=== PATIENT | female | born 1940 | race Caucasian/White ===

== ENCOUNTER 2018-12-15 22:46 | Inpatient (IN) ==
[2018-12-16] MEDS ORDERED: SODIUM CHLORIDE 0.9% 2,000 ML IV STA (00:16)
[2018-12-16 00:25] LABS: Basophils % 0.3 % (0.0-0.8); Eosinophils # 0.1 10*3/uL (0.0-0.87); Hematocrit 39.7 VOL% (35.7-47.0); Hemoglobin 12.5 GM/DL (12.0-16.0); Immature Granulocytes % 0.7 %; Immature Granulocytes Absolute 0.09 #; Lymphocytes # 1.2 10*3/uL (1.4-4.0); Mean Corpuscular HGB Conc 31.5 GM/DL (32-36); Mean Corpuscular Hemoglobin 27 PG (27-34); Mean Corpuscular Volume 84.8 FL (87-102); Mean Platelet Volume 10.3 FL (9.6-12.0); Monocytes % 7.2 % (1.7-12.7); Neutrophils # 10.9 10*3/uL (1.4-7.4); Neutrophils % 81.8 % (38.7-73.9); Platelet Count 390 T/CUMM (130-400); Red Blood Count 4.68 MC/CUMM (3.8-5.5); Red Cell Distribution Width 12.8 % (9.3-17.3); White Blood Count 13.4 T/CUMM (4-12)
[2018-12-16 00:36] LABS: Albumin 3.2 G/DL (3.4-5.0); Bilirubin,Total 0.5 MG/DL (0.2-1.0); Calcium 11.8 MG/DL (8.5-10.1); Potassium 3.8 MMOL/L (3.5-5.1)
[2018-12-16 01:14] LABS: Apearance,Urine Slightly Hazy (Clear); Bilirubin,Urine Negative (Negative); Blood, Urine Negative (Negative); Glucose,Urine (UA) Negative (Negative); Hyaline Casts,Urine 8 /LPF (0-3); Ketones,Urine Negative (Negative); Mucus,Urine Occasional /LPF (Occasional); Nitrite,Urine Negative (Negative); Protein,Urine Negative; RBC,Urine <1 /HPF (0-4); Squamous Epithelial Cell,Urine Occasional /HPF (0-10); Urine Color Amber (Yellow); Urine Specific Gravity 1.019 (1.001-1.035); WBC,Urine <1 /HPF (0-6)
[2018-12-16 01:47] LABS: Barbiturates Screen,Urine Negative (Negative); Benzodiazepines Screen,Urine Positive (Negative); Cannabinoid Screen,Urine Negative (Negative); Opiate Screen,Urine Negative (Negative); Phencyclidine Screen,Urine Negative (Negative)
[2018-12-16] MEDS ORDERED: ACETAMINOPHEN 325 MG TABLET PO PRN (03:18)
[2018-12-16] MEDS ORDERED: ONDANSETRON 4 MG/2 ML VIAL IV PRN (03:18)
[2018-12-16] MEDS: SODIUM CHLORIDE 0.9% 1,000 ML IV SCH ×2 (04:32→14:29)
[2018-12-16 07:18] LABS: Basophils % 0.2 % (0.0-0.8); Eosinophils # 0.1 10*3/uL (0.0-0.87); Eosinophils % 0.5 % (0.00-10.9); Hematocrit 34.9 VOL% (35.7-47.0); Immature Granulocytes % 0.7 %; Immature Granulocytes Absolute 0.08 #; Lymphocytes # 1.8 10*3/uL (1.4-4.0); Lymphocytes % 14.5 % (21.3-54.2); Mean Corpuscular HGB Conc 31.5 GM/DL (32-36); Mean Corpuscular Hemoglobin 26 PG (27-34); Mean Corpuscular Volume 83.7 FL (87-102); Mean Platelet Volume 9.8 FL (9.6-12.0); Monocytes % 8.4 % (1.7-12.7); Neutrophils # 9.3 10*3/uL (1.4-7.4); Neutrophils % 75.7 % (38.7-73.9); Platelet Count 327 T/CUMM (130-400); Red Blood Count 4.17 MC/CUMM (3.8-5.5); Red Cell Distribution Width 12.9 % (9.3-17.3); White Blood Count 12.3 T/CUMM (4-12)
[2018-12-16 07:47] LABS: Albumin 2.8 G/DL (3.4-5.0); Bilirubin,Total 0.8 MG/DL (0.2-1.0); Risk Ratio 4.88; Total Protein 6.8 G/DL (6.4-8.3); VLDL CHOLESTEROL 21.6 MG/DL
[2018-12-16] MEDS: PANTOPRAZOLE 40 MG TABLET PO SCH (08:58)
[2018-12-16] MEDS ORDERED: ENOXAPARIN 40 MG/0.4 ML SYRINGE SUBCUT SCH (09:00)
[2018-12-16] MEDS: VENLAFAXINE 75 MG TABLET PO SCH (14:06)
[2018-12-16] MEDS: AMPICILLIN INJ 500 MG in SODIUM CHLORIDE 0.9% 100 ML IV SCH (14:06)
[2018-12-16] MEDS: LIDOCAINE 5% PATCH TRANSDERM SCH (14:28)
[2018-12-16] MEDS ORDERED: ENOXAPARIN 30 MG/0.3 ML SYRINGE SUBCUT ONE (14:51)
[2018-12-16] MEDS ORDERED: ENOXAPARIN 40 MG/0.4 ML SYRINGE SUBCUT ONE (16:30)
[2018-12-16] MEDS: RIVAROXABAN 15 MG TABLET PO SCH (18:27)
[2018-12-16] MEDS: MEMANTINE 10 MG TABLET PO SCH (20:37)
[2018-12-16] MEDS: GLUCOSAMINE 500 MG TABLET PO SCH (20:37)
[2018-12-16] MEDS: clonazePAM 0.5 MG TABLET PO SCH (20:38)
[2018-12-16] MEDS ORDERED: ENOXAPARIN 80 MG/0.8 ML SYRINGE SUBCUT SCH (22:00)
[2018-12-17] MEDS: AMPICILLIN INJ 500 MG in SODIUM CHLORIDE 0.9% 100 ML IV SCH ×5 (00:29→17:19)
[2018-12-17] MEDS: SODIUM CHLORIDE 0.9% 1,000 ML IV SCH ×3 (00:35→14:19)
[2018-12-17] MEDS: LIDOCAINE 5% PATCH TRANSDERM SCH ×2 (04:30→15:59)
[2018-12-17] MEDS ORDERED: KRILL OIL PO SCH (09:00)
[2018-12-17] MEDS: RIVAROXABAN 15 MG TABLET PO SCH ×2 (10:30→17:19)
[2018-12-17] MEDS: PANTOPRAZOLE 40 MG TABLET PO SCH (10:31)
[2018-12-17] MEDS: VENLAFAXINE 75 MG TABLET PO SCH (10:31)
[2018-12-17] MEDS: GLUCOSAMINE 500 MG TABLET PO SCH ×2 (10:31→21:47)
[2018-12-17] MEDS: clonazePAM 0.5 MG TABLET PO SCH ×2 (10:31→14:00)
[2018-12-17] MEDS: MEMANTINE 10 MG TABLET PO SCH ×2 (10:31→21:47)
[2018-12-17] MEDS: CHOLECALCIFEROL 1,000 UNIT TABLET PO SCH (10:32)
[2018-12-17] MEDS: FENOFIBRATE 145 MG TABLET PO SCH (10:32)
[2018-12-18] MEDS: SODIUM CHLORIDE 0.9% 1,000 ML IV SCH (00:15)
[2018-12-18] MEDS: AMPICILLIN INJ 500 MG in SODIUM CHLORIDE 0.9% 100 ML IV SCH ×4 (00:15→18:22)
[2018-12-18] MEDS: clonazePAM 0.5 MG TABLET PO SCH ×3 (00:19→21:36)
[2018-12-18] MEDS: LIDOCAINE 5% PATCH TRANSDERM SCH ×2 (03:57→15:02)
[2018-12-18 06:31] LABS: Basophils % 0.5 % (0.0-0.8); Eosinophils # 0.2 10*3/uL (0.0-0.87); Hematocrit 31.1 VOL% (35.7-47.0); Hemoglobin 9.7 GM/DL (12.0-16.0); Immature Granulocytes % 0.5 %; Immature Granulocytes Absolute 0.04 #; Lymphocytes # 1.4 10*3/uL (1.4-4.0); Lymphocytes % 18.4 % (21.3-54.2); Mean Corpuscular HGB Conc 31.2 GM/DL (32-36); Mean Corpuscular Hemoglobin 27 PG (27-34); Mean Corpuscular Volume 86.1 FL (87-102); Mean Platelet Volume 9.6 FL (9.6-12.0); Monocytes # 0.7 10*3/uL (0.11-0.8); Monocytes % 9.7 % (1.7-12.7); Neutrophils % 67.9 % (38.7-73.9); Platelet Count 295 T/CUMM (130-400); Red Blood Count 3.61 MC/CUMM (3.8-5.5); Red Cell Distribution Width 12.8 % (9.3-17.3); White Blood Count 7.3 T/CUMM (4-12)
[2018-12-18 06:51] LABS: Calcium 9.3 MG/DL (8.5-10.1); Osmolality,Calculated 294.4 MOS/KG (273-304); Potassium 3.3 MMOL/L (3.5-5.1)
[2018-12-18] MEDS ORDERED: POTASSIUM CHLORIDE 20 MEQ TABLET PO ONE ×2 (07:08→11:09)
[2018-12-18] MEDS: RIVAROXABAN 15 MG TABLET PO SCH ×2 (07:39→16:32)
[2018-12-18] MEDS: GLUCOSAMINE 500 MG TABLET PO SCH ×2 (09:19→21:36)
[2018-12-18] MEDS: MAGNESIUM OXIDE 400 MG TABLET PO SCH ×2 (09:19→21:36)
[2018-12-18] MEDS: MEMANTINE 10 MG TABLET PO SCH ×2 (09:20→21:36)
[2018-12-18] MEDS: VENLAFAXINE 75 MG TABLET PO SCH (09:20)
[2018-12-18] MEDS: CHOLECALCIFEROL 1,000 UNIT TABLET PO SCH (09:20)
[2018-12-18] MEDS: FENOFIBRATE 145 MG TABLET PO SCH (09:20)
[2018-12-18] MEDS: POTASSIUM CHLORIDE 20 MEQ TABLET PO SCH (09:20)
[2018-12-18] MEDS: PANTOPRAZOLE 40 MG TABLET PO SCH (09:21)
[2018-12-19] MEDS: AMPICILLIN INJ 500 MG in SODIUM CHLORIDE 0.9% 100 ML IV SCH ×2 (00:15→05:50)
[2018-12-19] MEDS: LIDOCAINE 5% PATCH TRANSDERM SCH ×2 (03:14→22:15)
[2018-12-19 05:50] LABS: Basophils % 0.5 % (0.0-0.8); Eosinophils # 0.3 10*3/uL (0.0-0.87); Eosinophils % 3.9 % (0.00-10.9); Hematocrit 34.7 VOL% (35.7-47.0); Hemoglobin 10.6 GM/DL (12.0-16.0); Immature Granulocytes % 0.7 %; Immature Granulocytes Absolute 0.06 #; Lymphocytes # 1.6 10*3/uL (1.4-4.0); Lymphocytes % 19.2 % (21.3-54.2); Mean Corpuscular HGB Conc 30.5 GM/DL (32-36); Mean Corpuscular Hemoglobin 26 PG (27-34); Mean Corpuscular Volume 85.7 FL (87-102); Monocytes # 0.8 10*3/uL (0.11-0.8); Monocytes % 8.8 % (1.7-12.7); Neutrophils # 5.7 10*3/uL (1.4-7.4); Neutrophils % 66.9 % (38.7-73.9); Platelet Count 359 T/CUMM (130-400); Red Blood Count 4.05 MC/CUMM (3.8-5.5); Red Cell Distribution Width 12.8 % (9.3-17.3); White Blood Count 8.6 T/CUMM (4-12)
[2018-12-19 06:21] LABS: Calcium 9.6 MG/DL (8.5-10.1); Potassium 3.7 MMOL/L (3.5-5.1)
[2018-12-19] MEDS: clonazePAM 0.5 MG TABLET PO SCH ×2 (10:02→21:22)
[2018-12-19] MEDS: MEMANTINE 10 MG TABLET PO SCH ×2 (10:02→21:23)
[2018-12-19] MEDS: POTASSIUM CHLORIDE 20 MEQ TABLET PO SCH (10:02)
[2018-12-19] MEDS: GLUCOSAMINE 500 MG TABLET PO SCH ×2 (10:02→21:23)
[2018-12-19] MEDS: PANTOPRAZOLE 40 MG TABLET PO SCH (10:02)
[2018-12-19] MEDS: FENOFIBRATE 145 MG TABLET PO SCH (10:02)
[2018-12-19] MEDS: CHOLECALCIFEROL 1,000 UNIT TABLET PO SCH (10:02)
[2018-12-19] MEDS: VENLAFAXINE 75 MG TABLET PO SCH (10:03)
[2018-12-19] MEDS: RIVAROXABAN 15 MG TABLET PO SCH ×2 (10:04→18:04)
[2018-12-19] MEDS: MAGNESIUM OXIDE 400 MG TABLET PO SCH ×2 (10:04→21:23)
[2018-12-19] MEDS ORDERED: TUBERCULIN SKIN TEST 0.1 ML SYRINGE INTRADERM ONE (13:00)
[2018-12-20] MEDS: clonazePAM 0.5 MG TABLET PO SCH ×2 (10:08→20:48)
[2018-12-20] MEDS: MEMANTINE 10 MG TABLET PO SCH ×2 (10:08→20:49)
[2018-12-20] MEDS: GLUCOSAMINE 500 MG TABLET PO SCH ×2 (10:09→20:49)
[2018-12-20] MEDS: VENLAFAXINE 75 MG TABLET PO SCH (10:09)
[2018-12-20] MEDS: CHOLECALCIFEROL 1,000 UNIT TABLET PO SCH (10:09)
[2018-12-20] MEDS: FENOFIBRATE 145 MG TABLET PO SCH (10:09)
[2018-12-20] MEDS: MAGNESIUM OXIDE 400 MG TABLET PO SCH ×2 (10:10→20:49)
[2018-12-20] MEDS: RIVAROXABAN 15 MG TABLET PO SCH ×2 (10:10→18:18)
[2018-12-20] MEDS: PANTOPRAZOLE 40 MG TABLET PO SCH (10:10)
[2018-12-20] MEDS: POTASSIUM CHLORIDE 20 MEQ TABLET PO SCH (10:10)
[2018-12-20] MEDS: LIDOCAINE 5% PATCH TRANSDERM SCH (13:17)
[2018-12-21] MEDS: clonazePAM 0.5 MG TABLET PO SCH ×2 (09:36→20:52)
[2018-12-21] MEDS: VENLAFAXINE 75 MG TABLET PO SCH (09:36)
[2018-12-21] MEDS: FENOFIBRATE 145 MG TABLET PO SCH (09:36)
[2018-12-21] MEDS: MEMANTINE 10 MG TABLET PO SCH ×2 (09:43→20:52)
[2018-12-21] MEDS: LIDOCAINE 5% PATCH TRANSDERM SCH (09:44)
[2018-12-21] MEDS: MAGNESIUM OXIDE 400 MG TABLET PO SCH ×2 (09:44→20:52)
[2018-12-21] MEDS: POTASSIUM CHLORIDE 20 MEQ TABLET PO SCH (09:44)
[2018-12-21] MEDS: RIVAROXABAN 15 MG TABLET PO SCH ×2 (09:44→16:54)
[2018-12-21] MEDS: PANTOPRAZOLE 40 MG TABLET PO SCH (09:44)
[2018-12-21] MEDS: GLUCOSAMINE 500 MG TABLET PO SCH ×2 (09:44→20:52)
[2018-12-21] MEDS: LOSARTAN/HCTZ 50-12.5 MG TABLET PO SCH (09:44)
[2018-12-21] MEDS: CHOLECALCIFEROL 1,000 UNIT TABLET PO SCH (09:44)
[2018-12-22] MEDS: PANTOPRAZOLE 40 MG TABLET PO SCH (08:34)
[2018-12-22] MEDS: LOSARTAN/HCTZ 50-12.5 MG TABLET PO SCH (08:34)
[2018-12-22] MEDS: MEMANTINE 10 MG TABLET PO SCH (08:34)
[2018-12-22] MEDS: clonazePAM 0.5 MG TABLET PO SCH (08:34)
[2018-12-22] MEDS: FENOFIBRATE 145 MG TABLET PO SCH (08:34)
[2018-12-22] MEDS: POTASSIUM CHLORIDE 20 MEQ TABLET PO SCH (08:34)
[2018-12-22] MEDS: MAGNESIUM OXIDE 400 MG TABLET PO SCH (08:34)
[2018-12-22] MEDS: CHOLECALCIFEROL 1,000 UNIT TABLET PO SCH (08:34)
[2018-12-22] MEDS: RIVAROXABAN 15 MG TABLET PO SCH (08:34)
[2018-12-22] MEDS: VENLAFAXINE 75 MG TABLET PO SCH (08:35)
[2018-12-22] MEDS: LIDOCAINE 5% PATCH TRANSDERM SCH (08:35)
[2018-12-22] MEDS: GLUCOSAMINE 500 MG TABLET PO SCH (08:40)
[2018-12-22 12:32] VITALS: BP 125/85
[2018-12-27] MEDS ORDERED: RIVAROXABAN 20 MG TABLET PO SCH (09:00)
== END 2018-12-22 15:33 | disposition home health service (06) | DRG 167 ==
LOC: EDUNIT# → EDBD → N.EDINP 22:46 → N.ED 22:46 → SUATTDRO 12-16 03:18 → N.2E 12-16 03:53 → SUATTDRO 12-16 16:28 → N.CC 12-16 18:25 → N.2E 12-18 20:00
PROVIDERS: ADMIT Internal Medicine; ATTEND Internal Medicine